=== PATIENT | male | born 1965 | race Caucasian/White ===

== ENCOUNTER 2017-05-19 17:49 | Emergency (ER) | payer MEDICAID ==
--- NOTE | 2017-05-19 17:59 | EDPHY ---
H & P Stated Complaint: [place], facial numbness,cp since 11am Time Seen by Provider: 05/19/17 17:58 - Personal History Current Tetanus Diphtheria and Acellular Pertussis (TDAP): No - Medical/Surgical History Other PMH: tia, dm,back and shoulder surgery - Social History Smoking Status: Never smoked Constitutional: Initial Vital Signs Temperature (C) 36.7 C 05/19/17 17:54 Heart Rate 82 05/19/17 17:54 Respiratory Rate 16 05/19/17 17:54 Blood Pressure 147/87 H 05/19/17 17:54 O2 Sat (%) 93 05/19/17 17:54 O2 Delivery Mode Room Air Allergies/Adverse Reactions: ciprofloxacin Allergy (Verified 05/19/17 17:51) morphine Allergy (Verified 05/19/17 17:51) seafood Allergy (Uncoded 05/19/17 17:51) Home Medications: Medication Instructions Recorded Amlodipine Besylate 05/19/17 Gabadone Capsule 05/19/17 Invokana 05/19/17 Levemir 05/19/17 Trangenta 05/19/17 novoLOG 05/19/17 Medical Decision Making ED Course/Re-evaluation: CHIEF COMPLAINT: Possible TIA HISTORY OF PRESENT ILLNESS: The patient is a 51 y/o male arriving with his friend complaining of feeling like he did previously when he was told he likely had a TIA 1 month ago at [facility] in [place]. He had what he reports as an extensive neurologic work up with brain imaging at that time. He currently has right-sided facial tingling that does not cross midline. He has an intermittent headache and right ear ringing for the last few months that is also present currently. He denies extremity weakness, paresthesias, vision changes, confusion , difficulty with speech, fever, recent illness, recent trauma. He is otherwise healthy. No anticoagulants. REVIEW OF SYSTEMS: A 10 point review of systems was performed and is negative with the exception of the elements mentioned in the history of present illness. PHYSICAL EXAM: HR, BP, O2 Sat, RR. Temp noted General Appearance: Alert, well hydrated, appropriate, and non-toxic appearing. Head: Atraumatic without scalp tenderness or obvious injury Eyes: Pupils equal, round, reactive to light and accommodation, EOMI, no trauma , no injection. Ears: Right TM bulging with scarring. No perforation, normal landmarks Nose: Atraumatic, no rhinorrhea, clear. Throat: There is no erythema or exudates, no lesions, normal tonsils, mucus membranes moist. Neck: Supple, nontender, no lymphadenopathy. Respiratory: No retractions, no distress, no wheezes, and no accessory muscle use. Lungs are clear to auscultation bilaterally. Cardiovascular: Regular rate and rhythm, no murmurs, rubs, or gallops. Good capillary refill all extremities. Gastrointestinal: Abdomen is soft, nontender, non-distended, no masses, no rebound, no guarding, no peritoneal signs. Musculoskeletal: Normal active ROM of all extremities, atraumatic. Neurological: Alert, appropriate, and interactive. The patient has non-focal cranial nerves, motor, sensory, and cerebellar exam. Skin: No rashes, good turgor, no nodules on palpation. Past medical history: TIA one month ago Past surgical history: ortho surgery Family history: Noncontributory Social history: Friend at bedside. Lives in [place]. Self-employed. DIAGNOSTICS/PROCEDURES/CRITICAL CARE TIME: The 12 lead EKG was interpreted by myself. Sinus mechanism. See hard copy and/ or "tracemaster" electronic copy for interpretation. DIFFERENTIAL DIAGNOSIS: The differential diagnosis for the patient's neurologic deficits included but was not limited to peripheral causes, central causes including CVA, TIA, electrolyte abnormalities and dehydration, cardiogenic causes, atypical causes like migraine syndrome. MEDICAL DECISION MAKING: This is a 51 y/o male with reported history of TIA one month ago who presents with subjective right-sided facial paresthesias and intermittent headache. His neuro exam is completely normal. Plan for IV, labs, symptom management, and brain MRI. 10mg IV Reglan and 1L IV NS administered. Reassessed patient. His symptoms have completely resolved and he would like to go home prior to getting MRI. He understands that without this imaging I cannot rule out dangers causes for his symptoms. He accepts this risk and is ready for discharge home. Return precautions discussed. He will follow up with his neurologist as planned. - Data Points Laboratory Results: Laboratory Results 05/19/17 18:05 05/19/17 18:05 05/19/17 05/19/17 05/19/17 18:06 18:05 18:05 WBC 4.73 10^3/uL 10^3/uL (3.80-9.50) RBC 5.69 10^6/uL 10^6/uL (4.40-6.38) Hgb 17.5 g/dL g/dL (13.7-17.5) POC Hgb 17.7 gm/dL H gm/dL (13.7-17.5) Hct 50.1 % % (40.0-51.0) POC Hct 52 % H % (40-51) MCV 88.0 fL fL (81.5-99.8) MCH 30.8 pg pg (27.9-34.1) MCHC 34.9 g/dL g/dL (32.4-36.7) RDW 13.5 % % (11.5-15.2) Plt Count 234 10^3/uL 10^3/uL (150-400) MPV 11.2 fL fL (8.7-11.7) Neut % (Auto) 46.2 % % (39.3-74.2) Lymph % (Auto) 42.1 % % (15.0-45.0) Spink % (Auto) 8.2 % % (4.5-13.0) Eos % (Auto) 2.5 % % (0.6-7.6) Baso % (Auto) 0.6 % % (0.3-1.7) Nucleat RBC Rel Count 0.0 % % (0.0-0.2) Absolute Neuts (auto) 2.18 10^3/uL 10^3/uL (1.70-6.50) Absolute Lymphs (auto) 1.99 10^3/uL 10^3/uL (1.00-3.00) Absolute Monos (auto) 0.39 10^3/uL 10^3/uL (0.30-0.80) Absolute Eos (auto) 0.12 10^3/uL 10^3/uL (0.03-0.40) Absolute Basos (auto) 0.03 10^3/uL 10^3/uL (0.02-0.10) Absolute Nucleated RBC 0.00 10^3/uL 10^3/uL (0-0.01) Immature Gran % 0.4 % % (0.0-1.1) Immature Gran # 0.02 10^3/uL 10^3/uL (0.00-0.10) POC Sodium 141 mEq/L mEq/L (134-144) Sodium 139 mEq/L mEq/L (134-144) POC Potassium 3.7 mEq/L mEq/L (3.3-5.0) Potassium 4.2 mEq/L mEq/L (3.5-5.2) POC Chloride 102 mEq/L mEq/L (97-110) Chloride 103 mEq/L mEq/L (97-110) Carbon Dioxide 22 mEq/l mEq/l (22-31) Anion Gap 14 mEq/L mEq/L (8-16) POC BUN 18 mg/dL mg/dL (7-23) BUN 16 mg/dL mg/dL (7-23) Creatinine 0.8 mg/dL mg/dL (0.7-1.3) POC Creatinine 0.8 mg/dL mg/dL (0.7-1.3) Estimated GFR > 60 Glucose 205 mg/dL H mg/dL (70-100) POC Glucose 210 mg/dL H mg/dL (70-100) Calcium 9.6 mg/dL mg/dL (8.5-10.4) Medications Given: Discontinued Medications Metoclopramide HCl (Reglan Injection) 10 mg IVP EDNOW ONE Stop: 05/19/17 18:08 Last Admin: 05/19/17 18:54 Dose: 10 mg Point of Care Test Results: 05/19/17 18:06 POC Sodium 141 POC Potassium 3.7 POC Chloride 102 POC BUN 18 POC Creatinine 0.8 POC Glucose 210 H Departure - Departure Disposition: Home, Routine, Self-Care Clinical Impression: Facial paresthesia Condition: Good Instructions: Paresthesia (ED) Additional Instructions: Follow up with your neurologist in the next week to discuss these symptoms. Return to the ED for any worsening of condition. Referrals: GIORGI ESPARZA [Other] - As per Instructions Devon Dalton MD [Medical Doctor] - As per Instructions Report Scribed for: Pan Valencia Report Scribed by: Isela Cruz Date of Report: 05/19/17 Time of Report: 19:37
--- NOTE | 2017-05-19 18:02 | CPEKG ---
Heart Rate: 70 RR Interval: 857 P-R Interval: 148 QRSD Interval: 98 QT Interval: 364 QTC Interval: 393 P [place]: 25 QRS [place]: -4 T Wave [place]: 2 EKG Severity - NORMAL ECG - EKG Impression: SINUS RHYTHM Electronically Signed By: Pan Valencia 19-May-2017 19:48:46
[2017-05-19] MEDS ORDERED: METOCLOPRAMIDE 10 MG/2 ML VIAL IVP ONE (18:07)
[2017-05-19 18:15] LABS: PLATELET COUNT 234 10^3/uL (150-400)
[2017-05-19 18:58] VITALS: BP 129/69; O2SAT 95
[2017-05-19 19:29] VITALS: PULSE 80; RESP 15; TEMP 97.9
== END 2017-05-19 19:28 | disposition home or self-care (01) ==
DX: R20.2 Paresthesia of skin (principal)
CPT/HCPCS: 82947-QW; 96374; J2765